=== PATIENT | female | born 1940 ===

== ENCOUNTER 2018-07-07 14:45 | Inpatient (IN) | payer OTHER ==
[~2018-07-07] VITALS: Ht 160 cm; Wt 57.6 kg
[2018-07-07] MEDS ORDERED: AVAPRO300 MG PO (18:14)
[2018-07-07] MEDS ORDERED: SYNT PO (18:14)
[2018-07-07] MEDS ORDERED: PEPCID20 MG PO (18:15)
[2018-07-07] MEDS ORDERED: NEURONTIN600 MG PO (18:15)
[2018-07-07] MEDS ORDERED: EVISTA60 MG PO (18:15)
[2018-07-07] MEDS ORDERED: VYTORIN 10-201 EACH PO (18:15)
[2018-07-11] MEDS ORDERED: LEVOXYL50 MCG PO (08:23)
[2018-07-12] MEDS ORDERED: GABAPENTIN800 MG PO (09:53)
[2018-07-12] MEDS ORDERED: DOCUSATE SODIU100 MG PO (09:53)
[2018-07-12] MEDS ORDERED: AMOX-CLAV 875-1 EACH PO (09:55)
[2018-07-12] MEDS ORDERED: CLONAZEPAM0.5 M1 PO (09:56)
[2018-07-12] MEDS ORDERED: PERCOCET 5-3251 EACH PO (09:56)
== END 2018-07-12 16:06 | disposition home or self-care (01) | DRG 460 ==
LOC: O/R 07-11 06:15 → SURH 07-11 06:15 → SURG 07-11 14:31 → SURH 07-11 14:45 → O/R 07-11 14:53 → SURH 07-11 15:00
PROVIDERS: ADMIT Orthopaedic Surgery Orthopaedic Surgery of the Spine
PROC: 0SG00AJ Fusion of Lumbar Vertebral Joint with Interbody Fusion Device, Posterior Approach, Anterior Column, Open Approach (ICD-10-PCS; 2018-07-11)
PROC: 0ST20ZZ Resection of Lumbar Vertebral Disc, Open Approach (ICD-10-PCS; 2018-07-11)
PROC: 07DS3ZZ Extraction of Vertebral Bone Marrow, Percutaneous Approach (ICD-10-PCS; 2018-07-11)
PROC: 0SG00A0 Fusion of Lumbar Vertebral Joint with Interbody Fusion Device, Anterior Approach, Anterior Column, Open Approach (ICD-10-PCS; principal; 2018-07-11 15:00)
DX: M51.36 Other intervertebral disc degeneration, lumbar region (principal); M48.061 Spinal stenosis, lumbar region without neurogenic claudication; I10 Essential (primary) hypertension; E03.9 Hypothyroidism, unspecified